=== PATIENT | male | born 1955 ===

== ENCOUNTER 2016-12-23 04:35 | Emergency (ER) | payer SELFPAY ==
[2016-12-23] MEDS ORDERED: PEPCID IV ONE ×2 (04:52→05:01)
--- NOTE | 2016-12-23 06:41 | Emergency Department Report ---
HPI - General Chief Complaint: Allergic Reaction Time Seen by Provider: 12/23/16 06:16 - HPI HPI: This is a 61-year-old -[place] male who presents to the emergency department from home with complaint of a possible allergic reaction. The patient had some apple cider vinegar and some Ramen noodles at about 3 AM. Shortly after this he began feeling his tongue become numb and swelling and he felt like he was having some tightness into the chest. He then took about 100 mg of Benadryl and drove himself in to be seen. He was also having a little bit of swelling around the eyes. He now says that it is starting to improve. He denies any drooling, swelling of the posterior pharynx, fever. He denies any past medical history. He is allergic to IV dye, penicillin and seafood. Otherwise he does not know anything else he might have eaten or done that would' ve caused this reaction. He does not currently have a primary care physician. ED Past Medical Hx - Past Medical History Previous Medical History?: No - Surgical History Past Surgical History?: Yes Additional Surgical History: neck - Social History Smoking Status: Never Smoker Substance Use Type: Alcohol - Medications Home Medications: Home Medications Medication Instructions Recorded Confirmed Last Taken Type Famotidine [Pepcid] 20 mg PO BID #6 tablet 12/23/16 Unknown Rx predniSONE [Deltasone] 20 mg PO BID #6 tab 12/23/16 Unknown Rx ED Review of Systems ROS: Stated complaint: ALLERGIC REACTION Other details as noted in HPI Comment: All other systems reviewed and negative Constitutional: denies: chills, fever Eyes: denies: eye pain, eye discharge, vision change ENT: other (tongue swelling and numbness). denies: ear pain, throat pain Respiratory: shortness of breath. denies: cough Cardiovascular: denies: chest pain, palpitations Gastrointestinal: denies: abdominal pain, nausea, diarrhea Genitourinary: denies: urgency, dysuria Musculoskeletal: denies: back pain, joint swelling, arthralgia Skin: denies: rash, lesions Neurological: denies: headache, weakness, paresthesias Physical Exam - Physical Exam Vital Signs: Vital Signs 12/23/16 04:43 Temperature 98 F Pulse Rate 85 Respiratory 18 Rate Blood Pressure 159/106 O2 Sat by Pulse 100 Oximetry Physical Exam: GENERAL: The patient is well-developed well-nourished. HEENT: Normocephalic. Atraumatic. Extraocular motions are intact. Patient has moist mucous membranes. Pupils equal reactive to light bilaterally. No nystagmus. Oropharynx is clear. Mallampati of 1. NECK: Supple. Trachea is midline. Full range of motion. CHEST/LUNGS: Clear to auscultation. There is no respiratory distress noted. HEART/CARDIOVASCULAR: Regular. There is no tachycardia. There is no gallop rub or murmur. ABDOMEN: Abdomen is soft, nontender. Patient has normal bowel sounds. There is no abdominal distention. SKIN: There is no rash. There is no edema. There is no diaphoresis. NEURO: The patient is awake, alert, and oriented. The patient is cooperative. The patient has no focal neurologic deficits. The patient has normal speech. MUSCULOSKELETAL: There is no tenderness or deformity. There is no limitation range of motion. There is no evidence of acute injury. ED Course Vital Signs 12/23/16 04:43 Temperature 98 F Pulse Rate 85 Respiratory 18 Rate Blood Pressure 159/106 O2 Sat by Pulse 100 Oximetry ED Medical Decision Making - Lab Data Result diagrams: 12/23/16 07:02 12/23/16 07:05 - Radiology Data Radiology results: image reviewed interpreted by me: X-ray of the neck does not show any foreign body or airway occlusion - Medical Decision Making 61-year-old male presents to the ER with the complaint of a possible allergic reaction with some numbness of the tongue, feelings of swelling of the tongue and some tightness to the throat or chest. There is been no drooling or trismus. Patient has not been in any respiratory distress. He took Benadryl prior to coming in was given Solu-Medrol and Pepcid. On physical examination the patient does not have any significant swelling and has a patent oropharynx with a Mallampati 1. Vital signs stable throughout his ED course including being afebrile. The patient was reevaluated multiple times over the 5 hours he was in the emergency department and he has shown improvement. He no longer feels as if he has any of the symptoms that brought him in for presentation. We will attempt outpatient follow-up. He will go home on prednisone and Pepcid and follow up with primary care. He will return to the emergency department immediately with any returning of his symptoms or any respiratory distress or any acute distress. - Differential Diagnosis allergic reaction, angioedema Critical Care Time: No Critical care attestation.: If time is entered above; I have spent that time in minutes in the direct care of this critically ill patient, excluding procedure time. ED Disposition Clinical Impression: Allergic reaction Qualifiers: Encounter type: initial encounter Qualified Code(s): T78.40XA - Allergy, unspecified, initial encounter Disposition: TO HOME OR SELFCARE Is pt being admited?: No Condition: Stable Instructions: Angioedema (ED), Urticaria (ED) Additional Instructions: Please follow-up with a primary care physician in the next few days if possible. Return to the emergency department immediately, or call 911, with any recurrence of any tongue swelling, throat swelling, shortness of breath, drooling, chest pain or any acute distress. Please try and stay away from the apple cider vinegar and the Ramen until we can find out what she will are allergic to. Prescriptions: Famotidine [Pepcid] 20 mg PO BID #6 tablet predniSONE [Deltasone] 20 mg PO BID #6 tab Referrals: PRIMARY CAREMD [Primary Care Provider] - 3-5 Days THERESA GAO MD [Staff Physician] - 3-5 Days AARON BERGERON MD [Staff Physician] - 3-5 Days [facility] [Outside] - 3-5 Days [facility] [Outside] - 3-5 Days Time of Disposition: 09:40
[2016-12-23 07:28] LABS: Basophils % (Auto) 0.3 % (0.0-1.8); Eosinophils % (Auto) 0.9 % (0.0-4.3); Hematocrit 43.7 % (35.5-45.6); Hemoglobin 14.4 gm/dl (11.8-15.2); Mean Corpuscular HGB Conc 33 % (32-34); Mean Corpuscular Hemoglobin 33 pg (28-32); Mean Corpuscular Volume 99 fl (84-94); Platelet Count 195 K/mm3 (140-440); Red Blood Count 4.41 M/mm3 (3.65-5.03); Red Cell Distribution Width 13.9 % (13.2-15.2)
[2016-12-23 07:31] LABS: Anion Gap 15 mmol/L; Blood Urea Nitrogen 20 mg/dL (9-20); Calcium 9.4 mg/dL (8.4-10.2); Carbon Dioxide 29 mmol/L (22-30); Chloride 100.6 mmol/L (98-107); Glucose 117 mg/dL (75-100); Potassium 5.3 mmol/L (3.6-5.0); Sodium 139 mmol/L (137-145)
[2016-12-23] MEDS ORDERED: KIONEX PO ONE (07:34)
--- NOTE | 2016-12-23 08:18 | XRay Report ---
X-RAY SOFT TISSUE NECK TWO VIEWS: 12/23/16 05:08:00 CLINICAL: Allergic reaction and throat swelling. FINDINGS: Normal airway and soft tissues. The epiglottis is normal size. No mass. No soft tissue air or mediastinal air. No foreign body. Status post anterior surgical fusion at C5-6 with anterior late and screws. Degenerative change in the cervical spine. IMPRESSION: Normal soft tissues and no compromise of the airway..
[2016-12-23 10:50] VITALS: BP 118/74
== END 2016-12-23 09:49 | disposition home or self-care (01) ==
LOC: ED 04:35
DX: T78.1XXA Other adverse food reactions, not elsewhere classified, initial encounter (principal); X58.XXXA Exposure to other specified factors, initial encounter
CPT/HCPCS: 36415; 70360; 80048; 84484; 85025; 96374; 96375; 99284; J2930

== ENCOUNTER 2021-10-28 01:29 | Emergency (ER) | payer MEDICARE ==
[2021-10-28] MEDS ORDERED: ALBUTEROL 2.5 MG/3 ML NEBU IH ONE ×2 (07:45→08:47)
[2021-10-28] MEDS ORDERED: IPRATROPIUM 0.02% NEBU 2.5 ML IH ONE ×2 (07:45→08:47)
--- NOTE | 2021-10-28 07:52 | Emergency Department Report ---
HPI - General Chief Complaint: Dyspnea/Respdistress Time Seen by Provider: 10/28/21 07:39 - HPI HPI: Room 17 The patient is a 66-year-old male present with a chief complaint of chest congestion. The patient states for the past 1.5 weeks that he has had chest congestion and a cough. Patient states his cough has been productive of white sputum and now appears slightly green. Patient denies history of fever. Patient states he has been vaccinated against COVID receiving 3 doses. Patient denies shortness of breath ED Past Medical Hx - Past Medical History Previous Medical History?: Yes Additional medical history: HYPERLIPIDEMIA - Surgical History Past Surgical History?: No Additional Surgical History: neck - Family History Family history: no significant - Social History Smoking Status: Never Smoker Substance Use Type: None (Denies illicit drug use), Alcohol (Occasional) - Medications Home Medications: Home Medications Medication Instructions Recorded Confirmed Last Taken Type Famotidine [Pepcid] 20 mg PO BID #6 tablet 12/23/16 Unknown Rx predniSONE [Deltasone] 20 mg PO BID #6 tab 12/23/16 Unknown Rx Albuterol Mdi (or & Nicu Only) 2 puff IH QID PRN #8.5 gram 10/28/21 Unknown Rx [ProAir HFA Inhaler] Azithromycin [Zithromax Z-LONNIE] 0 mg PO DAILY #6 tab 10/28/21 Unknown Rx guaiFENesin [Guaifenesin] 200 mg PO QID PRN #30 10/28/21 Unknown Rx ED Review of Systems ROS: Stated complaint: ARETHA/COUGH Other details as noted in HPI Constitutional: denies: fever Eyes: denies: eye pain ENT: denies: throat pain Respiratory: cough, wheezing. denies: shortness of breath Cardiovascular: denies: chest pain Endocrine: no symptoms reported Gastrointestinal: denies: abdominal pain Genitourinary: denies: dysuria Musculoskeletal: denies: back pain Neurological: denies: headache Physical Exam - Physical Exam Vital Signs: Vital Signs 10/28/21 01:34 Temperature 98.1 F Pulse Rate 58 L Respiratory 20 Rate Blood Pressure 122/70 [Right] O2 Sat by Pulse 97 Oximetry Physical Exam: GENERAL: The patient is well-developed well-nourished male lying on stretcher not appearing to be in acute distress. [] HEENT: Normocephalic. Atraumatic. Extraocular motions are intact. Patient has moist mucous membranes. NECK: Supple. Trachea midline CHEST/LUNGS: Faint expiratory wheezing. There is no respiratory distress noted. HEART/CARDIOVASCULAR: Regular. There is no tachycardia. There is no gallop rub or murmur. ABDOMEN: Abdomen is soft, nontender. Patient has normal bowel sounds. There is no abdominal distention. SKIN: There is no rash. There is no edema. There is no diaphoresis. NEURO: The patient is awake, alert, and oriented. The patient is cooperative. The patient has no focal neurologic deficits. The patient has normal speech. GCS 15 MUSCULOSKELETAL: There is no evidence of acute injury. ED Course Vital Signs 10/28/21 01:34 Temperature 98.1 F Pulse Rate 58 L Respiratory 20 Rate Blood Pressure 122/70 [Right] O2 Sat by Pulse 97 Oximetry - Reevaluation(s) Reevaluation #1: 10/28/21 08:47 Patient still has some expiratory wheezing. Will repeat nebs Reevaluation #2: 10/28/21 10:10 Patient improved. Lungs clear to auscultation bilaterally. ED Medical Decision Making - Lab Data Result diagrams: 10/28/21 07:54 10/28/21 07:54 - Radiology Data Radiology results: report reviewed (Chest x-ray), image reviewed (Chest x-ray) interpreted by me: Chest x-ray-no definite focal infiltrates, no pneumothorax [facility] [address] [place] [address] XRay Report Signed Patient: AARON BERUMEN MR#: [id number] : 1955 Acct:[id number] Age/Sex: 66 / M ADM Date: 10/28/21 Loc: ED Attending Dr: Ordering Physician: ROBERT FLYNN MD Date of Service: 10/28/21 Procedure(s): XR chest 1V ap Accession Number(s): [id number] cc: ROBERT FLYNN MD Fluoro Time In Minutes: CHEST 1 VIEW 10/28/2021 7:53 AM INDICATION / CLINICAL INFORMATION: Cough, congestion. COMPARISON: None available. FINDINGS: SUPPORT DEVICES: None. HEART / MEDIASTINUM: No significant abnormality. LUNGS / PLEURA: No significant pulmonary or pleural abnormality. No pneumothorax. ADDITIONAL FINDINGS: No significant additional findings. IMPRESSION: No acute abnormality. Signer Name: Finesse Grajeda MD Signed: 10/28/2021 8:18 AM Workstation Name: [id number] Transcribed By: ES Dictated By: Finesse Grajeda MD Electronically Authenticated By: Finesse Grajeda MD Signed Date/Time: 10/28/21817 DD/ 6 TD/TT: - Differential Diagnosis Bronchitis, pneumonia Critical care attestation.: If time is entered above; I have spent that time in minutes in the direct care of this critically ill patient, excluding procedure time. ED Disposition Clinical Impression: Acute bronchitis Disposition: HOME / SELF CARE / HOMELESS Is pt being admited?: No Does the pt Need Aspirin: No Condition: Stable Instructions: Acute Bronchitis, Adult, [id number], Acute Bronchitis (ED) Additional Instructions: Return to the emergency department should you develop worsening symptoms, inability to tolerate food or liquids, high fever or any other concerns Prescriptions: guaiFENesin [Guaifenesin] 200 mg PO QID PRN #30 PRN Reason: Cough Albuterol Mdi (or & Nicu Only) [ProAir HFA Inhaler] 2 puff IH QID PRN #8.5 gram PRN Reason: Shortness Of Breath Azithromycin [Zithromax Z-LONNIE] 0 mg PO DAILY #6 tab Referrals: PRIMARY CARE, [Primary Care Provider] - 3-5 Days Time of Disposition: 10:11
[2021-10-28 08:15] LABS: Hematocrit 42.8 % (35.5-45.6); Mean Corpuscular HGB Conc 33 % (32-34); Mean Corpuscular Volume 98 fl (84-94); Platelet Count 282 K/mm3 (140-440); Red Blood Count 4.35 M/mm3 (3.65-5.03); Red Cell Distribution Width 13.6 % (13.2-15.2)
--- NOTE | 2021-10-28 08:22 | XRay Report ---
CHEST 1 VIEW 10/28/2021 7:53 AM INDICATION / CLINICAL INFORMATION: Cough, congestion. COMPARISON: None available. FINDINGS: SUPPORT DEVICES: None. HEART / MEDIASTINUM: No significant abnormality. LUNGS / PLEURA: No significant pulmonary or pleural abnormality. No pneumothorax. ADDITIONAL FINDINGS: No significant additional findings. IMPRESSION: No acute abnormality. Signer Name: Finesse Grajeda MD Signed: 10/28/2021 8:18 AM Workstation Name: [id number]
[2021-10-28 08:23] LABS: BUN/Creatinine Ratio 18; Blood Urea Nitrogen 14 mg/dL (9-20); Calcium 9.6 mg/dL (8.4-10.2); Hemolysis Index 6
[2021-10-28 10:12] VITALS: BP 121/77
[2021-10-28 10:33] LABS: Band Neutrophils # (Manual) 0.2 K/mm3; Platelet Estimate Consistent w Auto; RBC Morphology Normal; Total Cells Counted 100
== END 2021-10-28 10:49 | disposition home or self-care (01) ==
LOC: ED 01:29
DX: J20.9 Acute bronchitis, unspecified (principal); Z72.89 Other problems related to lifestyle; Z91.041 Radiographic dye allergy status; Z88.0 Allergy status to penicillin; Z91.013 Allergy to seafood; Z79.899 Other long term (current) drug therapy
CPT/HCPCS: 36415; 71045; 80048; 85007; 85025; 94640; 94644; 99284

== ENCOUNTER 2021-11-01 14:49 | Inpatient (IN) | payer MEDICARE ==
--- NOTE | 2021-11-01 15:39 | XRay Report ---
XR chest routine 2V INDICATION / CLINICAL INFORMATION: PNA. COMPARISON: 10/28/2021 FINDINGS: SUPPORT DEVICES: None. HEART /PULMONARY VASCULATURE: No significant abnormality. LUNGS / PLEURA: No acute pulmonary or pleural abnormality. No pneumothorax. ADDITIONAL FINDINGS: No significant additional findings. IMPRESSION: 1. No acute findings. Signer Name: Albaro Coello MD Signed: 11/01/2021 3:35 PM Workstation Name: [id number]
[2021-11-01] MEDS ORDERED: ALBUTEROL 2.5 MG/3 ML NEBU IH ONE ×2 (15:58→20:04)
[2021-11-01] MEDS ORDERED: IPRATROPIUM 0.02% NEBU 2.5 ML IH ONE (15:58)
[2021-11-01] MEDS ORDERED: methylPREDNISolone Sod Succinate 125 MG/2 ML INJ IV ONE (15:58)
[2021-11-01] MEDS ORDERED: MAGNESIUM SULFATE 2 GM/50 ML BAG IV ONE (15:58)
[2021-11-01] MEDS ORDERED: ONDANSETRON 4 MG/2 ML INJ IV ONE (16:07)
[2021-11-01] MEDS ORDERED: ONDANSETRON 4 MG/2 ML INJ ONE (16:07)
[2021-11-01 16:08] LABS: Hematocrit 40.6 % (35.5-45.6); Hemoglobin 13.4 gm/dl (11.8-15.2); Mean Corpuscular HGB Conc 33 % (32-34); Mean Corpuscular Volume 98 fl (84-94); Platelet Count 281 K/mm3 (140-440); Red Blood Count 4.13 M/mm3 (3.65-5.03); Red Cell Distribution Width 13.2 % (13.2-15.2)
--- NOTE | 2021-11-01 16:14 | Emergency Department Report ---
ED Shortness of Breath HPI - General Chief Complaint: Dyspnea/Respdistress Stated Complaint: BREATHING Time Seen by Provider: 11/01/21 15:49 Source: patient, old records reviewed Mode of arrival: Ambulatory Limitations: No Limitations - History of Present Illness Initial Comments: 66-year male with a past medical history hyperlipidemia presents to the hospital with complaints of wheezing and shortness of breath for several days. Patient was seen here October 28 with similar symptoms and was diagnosed with acute bronchitis. Chest x-ray negative at that time. He was prescribed albuterol, azithromycin, and guaifenesin. Patient has been taking medications without improvement. Continues to have persistent wheezing and shortness of breath was worsening today. Cough is productive with occasional green sputum. Patient complains of chest tightness related to wheezing rated 3/10 in intensity worse with exertion. Patient denies smoking history, history of COPD, or asthma - Related Data Previous Rx's Medication Instructions Recorded Last Taken Type Famotidine [Pepcid] 20 mg PO BID #6 tablet 12/23/16 Unknown Rx predniSONE [Deltasone] 20 mg PO BID #6 tab 12/23/16 Unknown Rx Albuterol Mdi (or & Nicu Only) 2 puff IH QID PRN #8.5 gram 10/28/21 Unknown Rx [ProAir HFA Inhaler] Azithromycin [Zithromax Z-LONNIE] 0 mg PO DAILY #6 tab 10/28/21 Unknown Rx guaiFENesin [Guaifenesin] 200 mg PO QID PRN #30 10/28/21 Unknown Rx Allergies Allergy/AdvReac Type Severity Reaction Status Date / Time Iodinated Contrast Media Allergy Unknown Verified 12/23/16 04:50 Penicillins Allergy Unknown Verified 12/23/16 04:48 seafood Allergy Unknown Uncoded 12/23/16 04:48 ED Review of Systems ROS: Stated complaint: BREATHING Other details as noted in HPI Comment: All other systems reviewed and negative ED Past Medical Hx - Past Medical History Previous Medical History?: Yes Additional medical history: HYPERLIPIDEMIA, SOB, PNEMONIA - Surgical History Past Surgical History?: Yes Additional Surgical History: neck - Social History Smoking Status: Never Smoker Substance Use Type: None (Denies illicit drug use), Alcohol (Occasional) - Medications Home Medications: Home Medications Medication Instructions Recorded Confirmed Last Taken Type Famotidine [Pepcid] 20 mg PO BID #6 tablet 12/23/16 Unknown Rx predniSONE [Deltasone] 20 mg PO BID #6 tab 12/23/16 Unknown Rx Albuterol Mdi (or & Nicu Only) 2 puff IH QID PRN #8.5 gram 10/28/21 Unknown Rx [ProAir HFA Inhaler] Azithromycin [Zithromax Z-LONNIE] 0 mg PO DAILY #6 tab 10/28/21 Unknown Rx guaiFENesin [Guaifenesin] 200 mg PO QID PRN #30 10/28/21 Unknown Rx ED Physical Exam - General Limitations: No Limitations - Other Other exam information: General: Mild respiratory distress Head: Atraumatic Eyes: normal appearance ENT: Moist mucous membranes Neck: Normal appearance, no midline tenderness Chest: Tachypnea, frequent dry cough, wheezing, fair air movement CV: Regular rate and rhythm Abdomen: Soft, normal bowel sounds, nontender, nondistended, no rebound or guarding Back: Normal inspection Extremity: Normal inspection, full range of motion, no calf tenderness or leg edema Neuro: Alert O x 3, no facial asymmetry, speech clear, no gross motor sensory deficit Psych: Appropriate behavior Skin: No rash ED Course Vital Signs 11/01/21 11/01/21 11/01/21 15:12 15:37 15:45 Temperature 98.5 F Pulse Rate 86 82 Pulse Rate [ Anterior Bilateral Throughout] Respiratory 20 29 H Rate Respiratory Rate [Anterior Bilateral Throughout] Blood Pressure 154/92 Blood Pressure 130/84 [Right] O2 Sat by Pulse 92 96 95 Oximetry 11/01/21 11/01/21 11/01/21 15:50 16:01 16:15 Temperature Pulse Rate 85 81 Pulse Rate [ Anterior Bilateral Throughout] Respiratory 22 18 18 Rate Respiratory Rate [Anterior Bilateral Throughout] Blood Pressure 139/89 139/89 Blood Pressure [Right] O2 Sat by Pulse 97 98 93 Oximetry 11/01/21 11/01/21 11/01/21 16:31 16:45 17:01 Temperature Pulse Rate 73 54 L 58 L Pulse Rate [ Anterior Bilateral Throughout] Respiratory 21 18 19 Rate Respiratory Rate [Anterior Bilateral Throughout] Blood Pressure 117/77 117/77 114/68 Blood Pressure [Right] O2 Sat by Pulse 98 93 96 Oximetry 11/01/21 11/01/21 11/01/21 17:05 17:15 17:31 Temperature Pulse Rate 54 L 55 L Pulse Rate [ 87 Anterior Bilateral Throughout] Respiratory 17 17 Rate Respiratory 19 Rate [Anterior Bilateral Throughout] Blood Pressure 114/68 119/69 Blood Pressure [Right] O2 Sat by Pulse 94 94 Oximetry 11/01/21 11/01/21 11/01/21 17:45 18:01 18:15 Temperature Pulse Rate 55 L 51 L 62 Pulse Rate [ Anterior Bilateral Throughout] Respiratory 16 16 22 Rate Respiratory Rate [Anterior Bilateral Throughout] Blood Pressure 119/69 122/65 122/65 Blood Pressure [Right] O2 Sat by Pulse 94 94 94 Oximetry 11/01/21 11/01/21 11/01/21 18:31 18:45 19:01 Temperature Pulse Rate 54 L 78 62 Pulse Rate [ Anterior Bilateral Throughout] Respiratory 17 17 9 L Rate Respiratory Rate [Anterior Bilateral Throughout] Blood Pressure 121/67 121/67 115/69 Blood Pressure [Right] O2 Sat by Pulse 93 95 99 Oximetry 11/01/21 20:13 Temperature Pulse Rate Pulse Rate [ 84 Anterior Bilateral Throughout] Respiratory Rate Respiratory 21 Rate [Anterior Bilateral Throughout] Blood Pressure Blood Pressure [Right] O2 Sat by Pulse Oximetry - Reevaluation(s) Reevaluation #1: 11/01/21 20:05 Patient has a room sat of 90 to 90%. Patient has completed 1 hour continuous DuoNeb's and continues to have persistent wheezing. Additional nebs ordered. Plan to admit patient to the hospital service at shift change ED Medical Decision Making - Lab Data Result diagrams: 11/01/21 15:38 11/01/21 15:38 Lab Results 11/01/21 11/01/21 Range/Units 15:38 15:38 WBC 5.4 (4.5-11.0) K/mm3 RBC 4.13 (3.65-5.03) M/mm3 Hgb 13.4 (11.8-15.2) gm/dl Hct 40.6 (35.5-45.6) % MCV 98 H (84-94) fl MCH 33 H (28-32) pg MCHC 33 (32-34) % RDW 13.2 (13.2-15.2) % Plt Count 281 (140-440) K/mm3 Eos % (Auto) Fulfillment Representative Add Manual Diff Complete Total Counted 100 Seg Neuts % (Manual) 43.0 (40.0-70.0) % Band Neutrophils % 0 % Lymphocytes % (Manual) 30.0 (13.4-35.0) % Reactive Lymphs % (Man) 0 % Monocytes % (Manual) 15.0 H (0.0-7.3) % Eosinophils % (Manual) 11.0 H (0.0-4.3) % Basophils % (Manual) 1.0 (0.0-1.8) % Metamyelocytes % 0 % Myelocytes % 0 % Promyelocytes % 0 % Blast Cells % 0 % Nucleated RBC % Not Reportable Seg Neutrophils # Man 2.3 (1.8-7.7) K/mm3 Band Neutrophils # 0.0 K/mm3 Lymphocytes # (Manual) 1.6 (1.2-5.4) K/mm3 Abs React Lymphs (Man) 0.0 K/mm3 Monocytes # (Manual) 0.8 (0.0-0.8) K/mm3 Eosinophils # (Manual) 0.6 H (0.0-0.4) K/mm3 Basophils # (Manual) 0.1 (0.0-0.1) K/mm3 Metamyelocytes # 0.0 K/mm3 Myelocytes # 0.0 K/mm3 Promyelocytes # 0.0 K/mm3 Blast Cells # 0.0 K/mm3 WBC Morphology Not Reportable Hypersegmented Neuts Not Reportable Hyposegmented Neuts Not Reportable Hypogranular Neuts Not Reportable Smudge Cells Not Reportable Toxic Granulation Not Reportable Toxic Vacuolation Not Reportable Dohle Bodies Not Reportable Pelger-Huet Anomaly Not Reportable Baljit Rods Not Reportable Platelet Estimate Consistent w auto Clumped Platelets Not Reportable Plt Clumps, EDTA Not Reportable Large Platelets Not Reportable Giant Platelets Not Reportable Platelet Satelliting Not Reportable Plt Morphology Comment Not Reportable RBC Morphology Normal Dimorphic RBCs Not Reportable Polychromasia Not Reportable Hypochromasia Not Reportable Poikilocytosis Not Reportable Anisocytosis Not Reportable Microcytosis Not Reportable Macrocytosis Not Reportable Spherocytes Not Reportable Pappenheimer Bodies Not Reportable Sickle Cells Not Reportable Target Cells Not Reportable Tear Drop Cells Not Reportable Ovalocytes Not Reportable Helmet Cells Not Reportable [place] Bodies Not Reportable [place] Rings Not Reportable [place] Cells Not Reportable Bite Cells Not Reportable Crenated Cell Not Reportable Elliptocytes Not Reportable Acanthocytes (Spur) Not Reportable Rouleaux Not Reportable Hemoglobin C Crystals Not Reportable Schistocytes Not Reportable Malaria parasites Not Reportable Chu Bodies Not Reportable Hem Pathologist Commnt No Sodium 138 (137-145) mmol/L Potassium 4.0 (3.6-5.0) mmol/L Chloride 103.7 (98-107) mmol/L Carbon Dioxide 21 L D (22-30) mmol/L Anion Gap 17 mmol/L BUN 11 (9-20) mg/dL Creatinine 0.9 (0.8-1.3) mg/dL Estimated GFR > 60 ml/min BUN/Creatinine Ratio 12 % Glucose 103 H (75-100) mg/dL Calcium 9.3 (8.4-10.2) mg/dL Total Bilirubin 0.60 (0.1-1.2) mg/dL AST 22 (5-40) units/L ALT 20 (7-56) units/L Alkaline Phosphatase 66 (35-129) units/L Total Protein 7.2 (6.3-8.2) g/dL Albumin 4.4 (3.9-5) g/dL Albumin/Globulin Ratio 1.6 % - Radiology Data Radiology results: report reviewed (Chest x-ray: No acute findings as per radiology) - Medical Decision Making 66-year-old male with a recent diagnosis of acute bronchitis presents to the hospital complaining of persistent and worsening wheezing and shortness of breath despite home MDI use. Patient significantly dyspneic with mild res piratory distress upon arrival. Treated with Solu-Medrol, magnesium, 1 hour continuous duo nebs with mild improvement in symptoms. Respiratory distress has improved however patient continues to have frequent wheezing and cough. Room air saturation 90 to 93%. No signs of pneumonia on x-ray. Patient will be admitted to the hospitalist service for further treatment Critical Care Time: Yes Critical care time in (mins) excluding proc time.: 35 Critical care attestation.: If time is entered above; I have spent that time in minutes in the direct care of this critically ill patient, excluding procedure time. Critical Care Time: 35 Minutes of critical care time excluding procedures were used in the care of the patient. I came immediately to the bedside upon patient's arrival. I discussed treatment plan with the nursing team members. I reviewed electronic record. Patient required multiple interventions and reassessments including multiple continuous neb treatments. Spoke with hospitalist and consultants in order to expedite care. ED Disposition Clinical Impression: Acute bronchitis with wheezing Disposition: ADMITTED INPATIENT Is pt being admited?: Yes Does the pt Need Aspirin: No Condition: Stable Instructions: Acute Bronchitis (ED) Time of Disposition: 21:29 (Dr hung/hosptialist)
[2021-11-01 16:16] LABS: Alanine Aminotransferase 20 units/L (7-56); Albumin 4.4 g/dL (3.9-5); BUN/Creatinine Ratio 12; Blood Urea Nitrogen 11 mg/dL (9-20); Calcium 9.3 mg/dL (8.4-10.2); Hemolysis Index 4
[2021-11-01 17:10] LABS: Platelet Estimate Consistent w Auto; RBC Morphology Normal; Total Cells Counted 100
[2021-11-01] MEDS ORDERED: ONDANSETRON 4 MG/2 ML INJ IV PRN (21:40)
[2021-11-01] MEDS ORDERED: ALBUTEROL 2.5 MG/3 ML NEBU IH PRN (21:40)
[2021-11-01] MEDS ORDERED: MORPHINE 2 MG/1 ML INJ IV PRN (21:40)
[2021-11-01] MEDS ORDERED: HYDROmorphone 1 MG/1 ML INJ IV PRN (21:40)
[2021-11-01] MEDS ORDERED: ACETAMINOPHEN 325 MG TAB PO PRN (21:40)
--- NOTE | 2021-11-01 21:47 | History and Physical Report ---
History of Present Illness Date of examination: 11/01/21 Date of admission: 11/01/21 Chief complaint: Dyspnea Respiratory distress History of present illness: 66-year male with history of hyperlipidemia and pneumonia was brought to the emergency room because of wheezing and shortness of breath for several days. Patient was seen here October 28 with similar symptoms and was diagnosed with acute bronchitis. Chest x-ray negative at that time. He was prescribed albu terol, azithromycin, and guaifenesin. Patient has been taking medications without improvement. Continues to have persistent wheezing and shortness of breath was worsening today. Cough is productive with occasional green sputum. Patient complains of chest tightness related to wheezing rated 3/10 in intensity worse with exertion. Patient denies smoking history, history of COPD, or asthma In the emergency room patient is found to have continuous respiratory distress wheezing so going to admit the patient we will put the patient on neb treatment and steroid and IV antibiotic Past History Past Medical History: hyperlipidemia, other (Pneumonia, shortness of breath) Past Surgical History: No surgical history Social history: no significant social history Family history: other (Hyperlipidemia) Medications and Allergies Allergies Allergy/AdvReac Type Severity Reaction Status Date / Time Iodinated Contrast Media Allergy Unknown Verified 12/23/16 04:50 Penicillins Allergy Unknown Verified 12/23/16 04:48 seafood Allergy Unknown Uncoded 12/23/16 04:48 Home Medications Medication Instructions Recorded Confirmed Last Taken Type Famotidine [Pepcid] 20 mg PO BID #6 tablet 12/23/16 Unknown Rx predniSONE [Deltasone] 20 mg PO BID #6 tab 12/23/16 Unknown Rx Albuterol Mdi (or & Nicu Only) 2 puff IH QID PRN #8.5 gram 10/28/21 Unknown Rx [ProAir HFA Inhaler] Azithromycin [Zithromax Z-LONNIE] 0 mg PO DAILY #6 tab 10/28/21 Unknown Rx guaiFENesin [Guaifenesin] 200 mg PO QID PRN #30 10/28/21 Unknown Rx Active Meds: Active Medications Acetaminophen (Acetaminophen 325 Mg Tab) 650 mg PO Q4H PRN PRN Reason: Pain MILD(1-3)/Fever >100.5/AQUINO Albuterol (Albuterol 2.5 Mg/3 Ml Nebu) 2.5 mg IH Q3HRT PRN PRN Reason: Shortness Of Breath Albuterol/Ipratropium (Ipratropium/Albuterol Sulfate 3 Ml Ampul.Neb) 1 ampul IH Q6HRT KAVIN Famotidine (Famotidine 20 Mg Tab) 20 mg PO BID KAVIN Heparin Sodium (Porcine) (Heparin 5,000 Unit/1 Ml Vial) 5,000 unit SUB-Q Q12HR KAVIN Hydromorphone HCl (Hydromorphone 1 Mg/1 Ml Inj) 0.5 mg IV Q3H PRN PRN Reason: Pain , Severe (7-10) Levofloxacin/Dextrose (Levaquin 750mg/150ml) 750 mg in 150 mls @ 100 mls/hr IV Q24H KAVIN; Protocol Methylprednisolone Sodium Succinate (Methylprednisolone Sod Succinate 40 Mg/1 Ml Inj) 40 mg IV Q8HR KAVIN Montelukast Sodium (Montelukast 10 Mg Tab) 10 mg PO QHS KAVIN Morphine Sulfate (Morphine 2 Mg/1 Ml Inj) 2 mg IV Q4H PRN PRN Reason: Pain, Moderate (4-6) Ondansetron HCl (Ondansetron 4 Mg/2 Ml Inj) 4 mg IV Q8H PRN PRN Reason: Nausea And Vomiting Sodium Chloride (Sodium Chloride 0.9% 10 Ml Flush Syringe) 10 ml IV BID KAVIN Sodium Chloride (Sodium Chloride 0.9% 10 Ml Flush Syringe) 10 ml IV PRN PRN PRN Reason: LINE FLUSH Review of Systems All systems: negative Cardiovascular: shortness of breath, dyspnea on exertion Respiratory: cough with sputum, shortness of breath, dyspnea on exertion, wheezing Exam - Constitutional Vitals: Temp Pulse Resp BP Pulse Ox 98.5 F 84 21 115/69 99 11/01/21 15:12 11/01/21 20:13 11/01/21 20:13 11/01/21 19:01 11/01/21 19:01 General appearance: Present: no acute distress, well-nourished - EENT Eyes: Present: PERRL ENT: hearing intact, clear oral mucosa - Neck Neck: Present: supple, normal ROM - Respiratory Respiratory effort: normal Respiratory: bilateral: wheezing - Cardiovascular Heart Sounds: Present: S1 & S2. Absent: rub, click - Extremities Extremities: pulses symmetrical, No edema Peripheral Pulses: within normal limits - Abdominal General gastrointestinal: Present: soft, non-tender, non-distended, normal bowel sounds Male genitourinary: Present: normal - Integumentary Integumentary: Present: clear, warm, dry - Musculoskeletal Musculoskeletal: gait normal, strength equal bilaterally - Psychiatric Psychiatric: appropriate mood/affect, intact judgment & insight - Neurologic Neurologic: CNII-XII intact, moves all extremities Results - Labs CBC & Chem 7: 11/01/21 15:38 11/01/21 15:38 Labs: Laboratory Last Values WBC 5.4 K/mm3 (4.5-11.0) 11/01/21 15:38 RBC 4.13 M/mm3 (3.65-5.03) 11/01/21 15:38 Hgb 13.4 gm/dl (11.8-15.2) 11/01/21 15:38 Hct 40.6 % (35.5-45.6) 11/01/21 15:38 MCV 98 fl (84-94) H 11/01/21 15:38 MCH 33 pg (28-32) H 11/01/21 15:38 MCHC 33 % (32-34) 11/01/21 15:38 RDW 13.2 % (13.2-15.2) 11/01/21 15:38 Plt Count 281 K/mm3 (140-440) 11/01/21 15:38 Eos % (Auto) Front Line Supervisor 11/01/21 15:38 Add Manual Diff Complete 11/01/21 15:38 Total Counted 100 11/01/21 15:38 Seg Neuts % (Manual) 43.0 % (40.0-70.0) 11/01/21 15:38 Band Neutrophils % 0 % 11/01/21 15:38 Lymphocytes % (Manual) 30.0 % (13.4-35.0) 11/01/21 15:38 Reactive Lymphs % (Man) 0 % 11/01/21 15:38 Monocytes % (Manual) 15.0 % (0.0-7.3) H 11/01/21 15:38 Eosinophils % (Manual) 11.0 % (0.0-4.3) H 11/01/21 15:38 Basophils % (Manual) 1.0 % (0.0-1.8) 11/01/21 15:38 Metamyelocytes % 0 % 11/01/21 15:38 Myelocytes % 0 % 11/01/21 15:38 Promyelocytes % 0 % 11/01/21 15:38 Blast Cells % 0 % 11/01/21 15:38 Nucleated RBC % Not Reportable 11/01/21 15:38 Seg Neutrophils # Man 2.3 K/mm3 (1.8-7.7) 11/01/21 15:38 Band Neutrophils # 0.0 K/mm3 11/01/21 15:38 Lymphocytes # (Manual) 1.6 K/mm3 (1.2-5.4) 11/01/21 15:38 Abs React Lymphs (Man) 0.0 K/mm3 11/01/21 15:38 Monocytes # (Manual) 0.8 K/mm3 (0.0-0.8) 11/01/21 15:38 Eosinophils # (Manual) 0.6 K/mm3 (0.0-0.4) H 11/01/21 15:38 Basophils # (Manual) 0.1 K/mm3 (0.0-0.1) 11/01/21 15:38 Metamyelocytes # 0.0 K/mm3 11/01/21 15:38 Myelocytes # 0.0 K/mm3 11/01/21 15:38 Promyelocytes # 0.0 K/mm3 11/01/21 15:38 Blast Cells # 0.0 K/mm3 11/01/21 15:38 WBC Morphology Not Reportable 11/01/21 15:38 Hypersegmented Neuts Not Reportable 11/01/21 15:38 Hyposegmented Neuts Not Reportable 11/01/21 15:38 Hypogranular Neuts Not Reportable 11/01/21 15:38 Smudge Cells Not Reportable 11/01/21 15:38 Toxic Granulation Not Reportable 11/01/21 15:38 Toxic Vacuolation Not Reportable 11/01/21 15:38 Dohle Bodies Not Reportable 11/01/21 15:38 Pelger-Huet Anomaly Not Reportable 11/01/21 15:38 Baljit Rods Not Reportable 11/01/21 15:38 Platelet Estimate Consistent w auto 11/01/21 15:38 Clumped Platelets Not Reportable 11/01/21 15:38 Plt Clumps, EDTA Not Reportable 11/01/21 15:38 Large Platelets Not Reportable 11/01/21 15:38 Giant Platelets Not Reportable 11/01/21 15:38 Platelet Satelliting Not Reportable 11/01/21 15:38 Plt Morphology Comment Not Reportable 11/01/21 15:38 RBC Morphology Normal 11/01/21 15:38 Dimorphic RBCs Not Reportable 11/01/21 15:38 Polychromasia Not Reportable 11/01/21 15:38 Hypochromasia Not Reportable 11/01/21 15:38 Poikilocytosis Not Reportable 11/01/21 15:38 Anisocytosis Not Reportable 11/01/21 15:38 Microcytosis Not Reportable 11/01/21 15:38 Macrocytosis Not Reportable 11/01/21 15:38 Spherocytes Not Reportable 11/01/21 15:38 Pappenheimer Bodies Not Reportable 11/01/21 15:38 Sickle Cells Not Reportable 11/01/21 15:38 Target Cells Not Reportable 11/01/21 15:38 Tear Drop Cells Not Reportable 11/01/21 15:38 Ovalocytes Not Reportable 11/01/21 15:38 Helmet Cells Not Reportable 11/01/21 15:38 Marie-[place] Bodies Not Reportable 11/01/21 15:38 [place] Rings Not Reportable 11/01/21 15:38 [place] Cells Not Reportable 11/01/21 15:38 Bite Cells Not Reportable 11/01/21 15:38 Crenated Cell Not Reportable 11/01/21 15:38 Elliptocytes Not Reportable 11/01/21 15:38 Acanthocytes (Spur) Not Reportable 11/01/21 15:38 Rouleaux Not Reportable 11/01/21 15:38 Hemoglobin C Crystals Not Reportable 11/01/21 15:38 Schistocytes Not Reportable 11/01/21 15:38 Malaria parasites Not Reportable 11/01/21 15:38 Chu Bodies Not Reportable 11/01/21 15:38 Hem Pathologist Commnt No 11/01/21 15:38 Sodium 138 mmol/L (137-145) 11/01/21 15:38 Potassium 4.0 mmol/L (3.6-5.0) 11/01/21 15:38 Chloride 103.7 mmol/L (98-107) 11/01/21 15:38 Carbon Dioxide 21 mmol/L (22-30) L D 11/01/21 15:38 Anion Gap 17 mmol/L 11/01/21 15:38 BUN 11 mg/dL (9-20) 11/01/21 15:38 Creatinine 0.9 mg/dL (0.8-1.3) 11/01/21 15:38 Estimated GFR > 60 ml/min 11/01/21 15:38 BUN/Creatinine Ratio 12 % 11/01/21 15:38 Glucose 103 mg/dL (75-100) H 11/01/21 15:38 Calcium 9.3 mg/dL (8.4-10.2) 11/01/21 15:38 Total Bilirubin 0.60 mg/dL (0.1-1.2) 11/01/21 15:38 AST 22 units/L (5-40) 11/01/21 15:38 ALT 20 units/L (7-56) 11/01/21 15:38 Alkaline Phosphatase 66 units/L (35-129) 11/01/21 15:38 Total Protein 7.2 g/dL (6.3-8.2) 11/01/21 15:38 Albumin 4.4 g/dL (3.9-5) 11/01/21 15:38 Albumin/Globulin Ratio 1.6 % 11/01/21 15:38 - Imaging and Cardiology Chest x-ray: report reviewed Assessment and Plan VTE prophylaxis?: Chemical Plan of care discussed with patient/family: Yes - Patient Problems (1) Acute bronchitis with wheezing Current Visit: Yes Status: Acute Plan to address problem: Admit the patient to the medical floor. Oxygen to have nasal cannula 3 L/min. DuoNeb by nebulizer every 4 hours. Albuterol via nebulizer every 4 hours as needed. Solu-Medrol 40 mg IV every 8 hours. Singular 10 mg p.o. daily. Levaquin 750 mg IV daily. We did send the blood in his sputum culture (2) Reactive airway disease with wheezing Current Visit: Yes Status: Acute Plan to address problem: Oxygen to have nasal cannula 3 L/min. DuoNeb by nebulizer every 4 hours. Albuterol via nebulizer every 4 hours as needed. Solu-Medrol 40 mg IV every 8 hours. Singular 10 mg p.o. daily. Levaquin 750 mg IV daily. We did send the blood in his sputum culture (3) Hyperlipidemia Current Visit: Yes Status: Acute Plan to address problem: Stable. We will continue the home medication. (4) DVT prophylaxis Current Visit: Yes Status: Acute Plan to address problem: Heparin 5000 units subcu every 12 hours for DVT prophylaxis. Pepcid 20 mg p.o. twice daily for GI prophylaxis. Patient is a full code
[2021-11-01] MEDS: MONTELUKAST 10 MG TAB PO SCH (22:55)
[2021-11-02] MEDS: IPRATROPIUM/ALBUTEROL SULFATE 3 ML AMPUL.NEB IH SCH ×4 (02:00→20:06)
[2021-11-02 05:23] LABS: Basophils % (Auto) 0.2 % (0.0-1.8); Eosinophils % (Auto) 0.1 % (0.0-4.3); Hematocrit 42.5 % (35.5-45.6); Hemoglobin 13.7 gm/dl (11.8-15.2); Lymphocytes # (Auto) 0.6 K/mm3 (1.2-5.4); Lymphocytes % (Auto) 11.8 % (13.4-35.0); Mean Corpuscular HGB Conc 32 % (32-34); Mean Corpuscular Volume 99 fl (84-94); Monocytes % (Auto) 0.8 % (0.0-7.3); Platelet Count 277 K/mm3 (140-440); Red Blood Count 4.28 M/mm3 (3.65-5.03); Red Cell Distribution Width 13.5 % (13.2-15.2)
[2021-11-02 05:44] LABS: BUN/Creatinine Ratio 12; Blood Urea Nitrogen 11 mg/dL (9-20); Calcium 9.6 mg/dL (8.4-10.2); Hemolysis Index 4
[2021-11-02] MEDS: methylPREDNISolone Sod Succinate 40 MG/1 ML INJ IV SCH ×4 (06:46→21:31)
--- NOTE | 2021-11-02 08:40 | Progress Note ---
Assessment and Plan Assessment and plan: History of present illness: 66-year male with history of hyperlipidemia and pneumonia was brought to the emergency room because of wheezing and shortness of breath for several days. Patient was seen here October 28 with similar symptoms and was diagnosed with acute bronchitis. Chest x-ray negative at that time. He was prescribed albuterol, azithromycin, and guaifenesin. Patient has been taking medications without improvement. Continues to have persistent wheezing and shortness of breath was worsening today. Cough is productive with occasional green sputum. Patient complains of chest tightness related to wheezing rated 3/10 in intensity worse with exertion. Patient denies smoking history, history of COPD, or asthma In the emergency room patient is found to have continuous respiratory distress wheezing so going to admit the patient we will put the patient on neb treatment and steroid and IV antibiotic Hospital course 11/02: Complains of cough this AM. Added claritin - D. Will continue nebs/steroids/abx for treatment. 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 previously healthy, plays tennis daily. no smoking hx. -on supplemental 2L O2 saturating 97%. - CXR no acute findings. -encourage pulmonary toileting, incentive spirometer -med management with albuterol/ipratropium nebs, budesonide nebs, solumedrol, levaquin, monteluekast. #Reactive airway disease with wheezing #Hyperlipidemia - does not take medications for this. #Advance care planning Disease education conducted, care plan discussed, diagnoses discussed, prognosis discussed, patient is full code, patient acknowledges understanding and agree with care plan, +30 minutes. History Interval history: Resting comfortably. only complaint is cough this AM. Hospitalist Physical - Physical exam Narrative exam: Physical Exam: VITAL SIGNS: Reviewed. GENERAL: The patient appears normally developed, Vital signs as documented. HEAD: No signs of head trauma. EYES: Pupils are equal. Extraocular motions intact. EARS: Hearing grossly intact. MOUTH: Oropharynx is normal. NECK: No adenopathy, no JVD. CHEST: Chest with notable congestion bilaterally. wheezes audible during expiration. CARDIAC: Regular rate and rhythm. S1 and S2, without murmurs, gallops, or rubs. VASCULAR: No Edema. Peripheral pulses normal and equal in all extremities. ABDOMEN: Soft, non tender and non distended. No rebound or guarding, and no masses palpated. Bowel Sounds normal. MUSCULOSKELETAL: Good range of motion of all major joints. Extremities without clubbing, cyanosis or edema. NEUROLOGIC EXAM: Alert and oriented x 4. no focal sensory or strength deficits. PSYCHIATRIC: Mood normal. SKIN: detail exam as documented in skin assessment - Constitutional Vitals: Temp Pulse Resp BP Pulse Ox 98.0 F 86 18 121/70 95 11/02/21 06:00 11/02/21 06:00 11/02/21 06:00 11/02/21 06:00 11/02/21 06:00 General appearance: Present: no acute distress, well-nourished Results - Labs CBC & Chem 7: 11/02/21 04:43 11/02/21 04:43 Labs: Laboratory Last Values WBC 5.3 K/mm3 (4.5-11.0) 11/02/21 04:43 RBC 4.28 M/mm3 (3.65-5.03) 11/02/21 04:43 Hgb 13.7 gm/dl (11.8-15.2) 11/02/21 04:43 Hct 42.5 % (35.5-45.6) 11/02/21 04:43 MCV 99 fl (84-94) H 11/02/21 04:43 MCH 32 pg (28-32) 11/02/21 04:43 MCHC 32 % (32-34) 11/02/21 04:43 RDW 13.5 % (13.2-15.2) 11/02/21 04:43 Plt Count 277 K/mm3 (140-440) 11/02/21 04:43 Lymph % (Auto) 11.8 % (13.4-35.0) L 11/02/21 04:43 [place] % (Auto) 0.8 % (0.0-7.3) 11/02/21 04:43 Eos % (Auto) 0.1 % (0.0-4.3) 11/02/21 04:43 Baso % (Auto) 0.2 % (0.0-1.8) 11/02/21 04:43 Lymph # (Auto) 0.6 K/mm3 (1.2-5.4) L 11/02/21 04:43 [place] # (Auto) 0.0 K/mm3 (0.0-0.8) 11/02/21 04:43 Eos # (Auto) 0.0 K/mm3 (0.0-0.4) 11/02/21 04:43 Baso # (Auto) 0.0 K/mm3 (0.0-0.1) 11/02/21 04:43 Add Manual Diff Complete 11/01/21 15:38 Total Counted 100 11/01/21 15:38 Seg Neutrophils % 87.1 % (40.0-70.0) H 11/02/21 04:43 Seg Neuts % (Manual) 43.0 % (40.0-70.0) 11/01/21 15:38 Band Neutrophils % 0 % 11/01/21 15:38 Lymphocytes % (Manual) 30.0 % (13.4-35.0) 11/01/21 15:38 Reactive Lymphs % (Man) 0 % 11/01/21 15:38 Monocytes % (Manual) 15.0 % (0.0-7.3) H 11/01/21 15:38 Eosinophils % (Manual) 11.0 % (0.0-4.3) H 11/01/21 15:38 Basophils % (Manual) 1.0 % (0.0-1.8) 11/01/21 15:38 Metamyelocytes % 0 % 11/01/21 15:38 Myelocytes % 0 % 11/01/21 15:38 Promyelocytes % 0 % 11/01/21 15:38 Blast Cells % 0 % 11/01/21 15:38 Nucleated RBC % Not Reportable 11/01/21 15:38 Seg Neutrophils # 4.6 K/mm3 (1.8-7.7) 11/02/21 04:43 Seg Neutrophils # Man 2.3 K/mm3 (1.8-7.7) 11/01/21 15:38 Band Neutrophils # 0.0 K/mm3 11/01/21 15:38 Lymphocytes # (Manual) 1.6 K/mm3 (1.2-5.4) 11/01/21 15:38 Abs React Lymphs (Man) 0.0 K/mm3 11/01/21 15:38 Monocytes # (Manual) 0.8 K/mm3 (0.0-0.8) 11/01/21 15:38 Eosinophils # (Manual) 0.6 K/mm3 (0.0-0.4) H 11/01/21 15:38 Basophils # (Manual) 0.1 K/mm3 (0.0-0.1) 11/01/21 15:38 Metamyelocytes # 0.0 K/mm3 11/01/21 15:38 Myelocytes # 0.0 K/mm3 11/01/21 15:38 Promyelocytes # 0.0 K/mm3 11/01/21 15:38 Blast Cells # 0.0 K/mm3 11/01/21 15:38 WBC Morphology Not Reportable 11/01/21 15:38 Hypersegmented Neuts Not Reportable 11/01/21 15:38 Hyposegmented Neuts Not Reportable 11/01/21 15:38 Hypogranular Neuts Not Reportable 11/01/21 15:38 Smudge Cells Not Reportable 11/01/21 15:38 Toxic Granulation Not Reportable 11/01/21 15:38 Toxic Vacuolation Not Reportable 11/01/21 15:38 Dohle Bodies Not Reportable 11/01/21 15:38 Pelger-Huet Anomaly Not Reportable 11/01/21 15:38 Baljit Rods Not Reportable 11/01/21 15:38 Platelet Estimate Consistent w auto 11/01/21 15:38 Clumped Platelets Not Reportable 11/01/21 15:38 Plt Clumps, EDTA Not Reportable 11/01/21 15:38 Large Platelets Not Reportable 11/01/21 15:38 Giant Platelets Not Reportable 11/01/21 15:38 Platelet Satelliting Not Reportable 11/01/21 15:38 Plt Morphology Comment Not Reportable 11/01/21 15:38 RBC Morphology Normal 11/01/21 15:38 Dimorphic RBCs Not Reportable 11/01/21 15:38 Polychromasia Not Reportable 11/01/21 15:38 Hypochromasia Not Reportable 11/01/21 15:38 Poikilocytosis Not Reportable 11/01/21 15:38 Anisocytosis Not Reportable 11/01/21 15:38 Microcytosis Not Reportable 11/01/21 15:38 Macrocytosis Not Reportable 11/01/21 15:38 Spherocytes Not Reportable 11/01/21 15:38 Pappenheimer Bodies Not Reportable 11/01/21 15:38 Sickle Cells Not Reportable 11/01/21 15:38 Target Cells Not Reportable 11/01/21 15:38 Tear Drop Cells Not Reportable 11/01/21 15:38 Ovalocytes Not Reportable 11/01/21 15:38 Helmet Cells Not Reportable 11/01/21 15:38 Marie-[place]ub[place] Bodies Not Reportable 11/01/21 15:38 [place] Rings Not Reportable 11/01/21 15:38 [place] Cells Not Reportable 11/01/21 15:38 Bite Cells Not Reportable 11/01/21 15:38 Crenated Cell Not Reportable 11/01/21 15:38 Elliptocytes Not Reportable 11/01/21 15:38 Acanthocytes (Spur) Not Reportable 11/01/21 15:38 Rouleaux Not Reportable 11/01/21 15:38 Hemoglobin C Crystals Not Reportable 11/01/21 15:38 Schistocytes Not Reportable 11/01/21 15:38 Malaria parasites Not Reportable 11/01/21 15:38 Chu Bodies Not Reportable 11/01/21 15:38 Hem Pathologist Commnt No 11/01/21 15:38 Sodium 137 mmol/L (137-145) 11/02/21 04:43 Potassium 4.3 mmol/L (3.6-5.0) 11/02/21 04:43 Chloride 101.5 mmol/L (98-107) 11/02/21 04:43 Carbon Dioxide 19 mmol/L (22-30) L 11/02/21 04:43 Anion Gap 21 mmol/L 11/02/21 04:43 BUN 11 mg/dL (9-20) 11/02/21 04:43 Creatinine 0.9 mg/dL (0.8-1.3) 11/02/21 04:43 Estimated GFR > 60 ml/min 11/02/21 04:43 BUN/Creatinine Ratio 12 % 11/02/21 04:43 Glucose 151 mg/dL (75-100) H 11/02/21 04:43 Calcium 9.6 mg/dL (8.4-10.2) 11/02/21 04:43 Total Bilirubin 0.60 mg/dL (0.1-1.2) 11/01/21 15:38 AST 22 units/L (5-40) 11/01/21 15:38 ALT 20 units/L (7-56) 11/01/21 15:38 Alkaline Phosphatase 66 units/L (35-129) 11/01/21 15:38 Total Protein 7.2 g/dL (6.3-8.2) 11/01/21 15:38 Albumin 4.4 g/dL (3.9-5) 11/01/21 15:38 Albumin/Globulin Ratio 1.6 % 11/01/21 15:38 Nelson/IV: Voiding Method Toilet Active Medications - Current Medications Current Medications: Generic Name Dose Route Start Last Admin Trade Name Freq PRN Reason Stop Dose Admin Acetaminophen 650 mg 11/01/21 21:40 Acetaminophen 325 Mg Tab PO Q4H PRN Pain MILD(1-3)/Fever >100.5/AQUINO Albuterol 2.5 mg 11/01/21 21:40 11/02/21 04:00 Albuterol 2.5 Mg/3 Ml Nebu IH 2.5 mg Q3HRT PRN Administration Shortness Of Breath Albuterol/Ipratropium 1 ampul 11/02/21 02:00 11/02/21 02:00 Ipratropium/Albuterol Sulfate 3 Ml Ampul.Neb IH Not Given Q6HRT KAVIN Famotidine 20 mg 11/01/21 22:00 11/02/21 00:00 Famotidine 20 Mg Tab PO 20 mg BID KAVIN Administration Heparin Sodium (Porcine) 5,000 unit 11/01/21 22:00 11/02/21 00:00 Heparin 5,000 Unit/1 Ml Vial SUB-Q 5,000 unit Q12HR KAVIN Administration Hydromorphone HCl 0.5 mg 11/01/21 21:40 Hydromorphone 1 Mg/1 Ml Inj IV Q3H PRN Pain , Severe (7-10) Levofloxacin/Dextrose 750 mg in 150 mls @ 100 mls/hr 11/01/21 22:00 11/02/21 00:00 Levaquin 750mg/150ml IV 100 mls/hr Q24H KAVIN Administration Protocol Methylprednisolone Sodium Succinate 40 mg 11/01/21 22:00 11/02/21 06:46 Methylprednisolone Sod Succinate 40 Mg/1 Ml Inj IV 40 mg Q8HR KAVIN Administration Montelukast Sodium 10 mg 11/01/21 22:00 11/01/21 22:55 Montelukast 10 Mg Tab PO Not Given QHS KAVIN Morphine Sulfate 2 mg 11/01/21 21:40 Morphine 2 Mg/1 Ml Inj IV Q4H PRN Pain, Moderate (4-6) Ondansetron HCl 4 mg 11/01/21 21:40 Ondansetron 4 Mg/2 Ml Inj IV Q8H PRN Nausea And Vomiting Sodium Chloride 10 ml 11/01/21 22:00 11/02/21 00:24 Sodium Chloride 0.9% 10 Ml Flush Syringe IV 10 ml BID KAVIN Administration Sodium Chloride 10 ml 11/01/21 21:40 Sodium Chloride 0.9% 10 Ml Flush Syringe IV PRN PRN LINE FLUSH
[2021-11-02] MEDS: FAMOTIDINE 20 MG TAB PO SCH ×3 (09:12→21:32)
[2021-11-02] MEDS: BUDESONIDE 0.5 MG/2 ML NEBU IH SCH ×2 (10:12→20:06)
[2021-11-02] MEDS: HEPARIN 5,000 UNIT/1 ML VIAL SUB-Q SCH ×3 (10:59→21:31)
[2021-11-02] MEDS: LORATADINE/PSEUDOEPHEDRINE 10-240 MG TAB 24HR PO SCH (15:05)
[2021-11-02] MEDS: guaiFENesin/CODEINE 100-10MG ORAL LIQD 5 ML PO PRN (20:05)
[2021-11-02] MEDS: MONTELUKAST 10 MG TAB PO SCH (21:32)
[2021-11-03] MEDS: IPRATROPIUM/ALBUTEROL SULFATE 3 ML AMPUL.NEB IH SCH ×3 (01:53→14:32)
[2021-11-03] MEDS: methylPREDNISolone Sod Succinate 40 MG/1 ML INJ IV SCH (05:22)
[2021-11-03] MEDS: BUDESONIDE 0.5 MG/2 ML NEBU IH SCH (08:46)
[2021-11-03] MEDS: HEPARIN 5,000 UNIT/1 ML VIAL SUB-Q SCH (11:06)
[2021-11-03] MEDS: guaiFENesin/CODEINE 100-10MG ORAL LIQD 5 ML PO PRN (11:07)
[2021-11-03] MEDS: FAMOTIDINE 20 MG TAB PO SCH (11:10)
[2021-11-03] MEDS: LORATADINE/PSEUDOEPHEDRINE 10-240 MG TAB 24HR PO SCH (11:10)
[2021-11-03 12:38] VITALS: BP 131/64
--- NOTE | 2021-11-03 14:01 | Discharge Summary ---
Providers - Providers Date of Admission: 11/01/21 21:40 Attending physician: FLOR LAZARO MD Primary care physician: JACINTA COOK Hospitalization Reason for admission: wheezing, shortness of breath Condition: Stable Hospital course: History of present illness: 66-year male with history of hyperlipidemia and pneumonia was brought to the mergency room because of wheezing and shortness of breath for several days. Patient was seen here October 28 with similar symptoms and was diagnosed with acute bronchitis. Chest x-ray negative at that time. He was prescribed albuterol, azithromycin, and guaifenesin. Patient has been taking medications without improvement. Continues to have persistent wheezing and shortness of breath was worsening today. Cough is productive with occasional green sputum. Patient complains of chest tightness related to wheezing rated 3/10 in intensity worse with exertion. Patient denies smoking history, history of COPD, or asthma In the emergency room patient is found to have continuous respiratory distress wheezing so going to admit the patient we will put the patient on neb treatment and steroid and IV antibiotic Hospital course 11/02: Complains of cough this AM. Added claritin - D. Will continue nebs/steroids/abx for treatment. Appears to have airway irritation from 11/03: Doing well on encounter. Walking o2 test completed. patient is 98% on room air. Discharge home today. Will send home with rx for albuterol, Pulmicort, prednisone taper, Claritin, Robitussin. Last day levaquin today. no need for rx. 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 previously healthy, plays tennis daily. no smoking hx. -on supplemental 2L O2 saturating 97%. - CXR no acute findings. -encourage pulmonary toileting, incentive spirometer -med management with albuterol/ipratropium nebs, budesonide nebs, solumedrol, levaquin, monteluekast. #Reactive airway disease with wheezing #Hyperlipidemia - does not take medications for this. #Advance care planning Disease education conducted, care plan discussed, diagnoses discussed, prognosis discussed, patient is full code, patient acknowledges understanding and agree with care plan, +30 minutes. Disposition: HOME / SELF CARE / HOMELESS Final Discharge Diagnosis (Prints w/discharge instructions): acute bronchitis Time spent for discharge: 35 Core Measure Documentation - Palliative Care Palliative Care/ Comfort Measures: Not Applicable - Core Measures Any of the following diagnoses?: none Exam - Physical Exam Narrative exam: Physical Exam: VITAL SIGNS: Reviewed. GENERAL: The patient appears normally developed, Vital signs as documented. HEAD: No signs of head trauma. EYES: Pupils are equal. Extraocular motions intact. EARS: Hearing grossly intact. MOUTH: Oropharynx is normal. NECK: No adenopathy, no JVD. CHEST: Chest with notable congestion bilaterally. wheezes audible during expiration. (improved on encounter) CARDIAC: Regular rate and rhythm. S1 and S2, without murmurs, gallops, or rubs. VASCULAR: No Edema. Peripheral pulses normal and equal in all extremities. ABDOMEN: Soft, non tender and non distended. No rebound or guarding, and no masses palpated. Bowel Sounds normal. MUSCULOSKELETAL: Good range of motion of all major joints. Extremities without clubbing, cyanosis or edema. NEUROLOGIC EXAM: Alert and oriented x 4. no focal sensory or strength deficits. PSYCHIATRIC: Mood normal. SKIN: detail exam as documented in skin assessment - Constitutional Vitals: Temp Pulse Resp BP Pulse Ox 98.0 F 79 16 131/64 97 11/03/21 12:00 11/03/21 12:00 11/03/21 12:00 11/03/21 12:00 11/03/21 12:00 Plan Follow up with: JACINTA COOK MD [Primary Care Provider] - 3-5 Days
[2021-11-04] MEDS ORDERED: levoFLOXacin 750 MG TAB PO SCH (22:00)
== END 2021-11-03 17:12 | disposition home or self-care (01) | DRG 203 ==
LOC: ED 14:49 → 3A 21:40
PROVIDERS: ADMIT Hospitalist; ATTEND Internal Medicine
DX: J20.9 Acute bronchitis, unspecified (principal); E78.5 Hyperlipidemia, unspecified; J45.909 Unspecified asthma, uncomplicated; Z91.041 Radiographic dye allergy status; Z88.0 Allergy status to penicillin; Z91.013 Allergy to seafood
CPT/HCPCS: 36415; 71046; 80048; 80053; 85007; 85025; 94640; 94644; 94760; G0378; J1644; J1956; J2405; J2920; J2930; J3475

== ENCOUNTER 2021-12-04 02:35 | Emergency (ER) | payer MEDICARE ==
[2021-12-04] MEDS ORDERED: IPRATROPIUM 0.02% NEBU 2.5 ML IH ONE (03:10)
[2021-12-04] MEDS ORDERED: methylPREDNISolone Sod Succinate 125 MG/2 ML INJ IV ONE (03:10)
[2021-12-04] MEDS ORDERED: ALBUTEROL 2.5 MG/3 ML NEBU IH ONE (03:10)
[2021-12-04] MEDS ORDERED: SODIUM CHLORIDE 0.9% 1000 ML 1,000 ML IV ONE (03:10)
--- NOTE | 2021-12-04 03:27 | XRay Report ---
CHEST 1 VIEW INDICATION / CLINICAL INFORMATION: Dyspnea STUDY TIME: 311 COMPARISON: 11/01/2021 FINDINGS: SUPPORT DEVICES: None HEART / MEDIASTINUM: No significant abnormality. LUNGS / PLEURA: No significant acute pulmonary or pleural abnormality. No pneumothorax. ADDITIONAL FINDINGS: No significant additional findings. Signer Name: Amos Lomeli MD Signed: 12/04/2021 3:23 AM Workstation Name: [id number]
[2021-12-04 03:39] LABS: Hematocrit 42.1 % (35.5-45.6); Hemoglobin 13.6 gm/dl (11.8-15.2); Mean Corpuscular HGB Conc 32 % (32-34); Mean Corpuscular Volume 99 fl (84-94); Platelet Count 254 K/mm3 (140-440); Red Blood Count 4.27 M/mm3 (3.65-5.03); Red Cell Distribution Width 13.5 % (13.2-15.2)
[2021-12-04 04:00] LABS: ABG Base Excess -0.8 mmol/L (-2.0-3.0); ABG HCO3 26.8 mmol/L (20.0-26.0); ABG Methemoglobin 0.5 % (0.0-1.5); ABG Oxygen Saturation 96.3 % (95.0-99.0); ABG PCO2 56.9 mm Hg; ABG PH 7.291 pH Units (7.350-7.450); ABG PO2 89.2 mm Hg (80.0-90.0)
[2021-12-04 04:01] LABS: Creatine Kinase MB 9.5 ng/mL (0.0-4.0)
[2021-12-04 04:02] LABS: Alanine Aminotransferase 26 units/L (7-56); Albumin 4.2 g/dL (3.9-5); BUN/Creatinine Ratio 15; Blood Urea Nitrogen 12 mg/dL (9-20); Calcium 9.3 mg/dL (8.4-10.2); Hemolysis Index 31
[2021-12-04] MEDS ORDERED: cefTRIAXone/NS 1 GM/50 ML 1 GM/50 ML BAG IV ONE (05:51)
--- NOTE | 2021-12-04 05:53 | Emergency Department Report ---
ED Shortness of Breath HPI - General Chief Complaint: Dyspnea/Respdistress Stated Complaint: ARETHA/SOB Time Seen by Provider: 12/04/21 03:10 Source: patient Mode of arrival: Ambulatory Limitations: No Limitations - History of Present Illness Initial Comments: SOB and ARETHA , started few days ago was seen by his doctor and diagnosd with neumonia , but not getting better no fever no rash MD Complaint: shortness of breath -: Gradual, days(s) Improves With: nothing Context: recent URI Associated Symptoms: denies other symptoms Treatments Prior to Arrival: bronchodilator - Related Data Home Oxygen Therapy: No Previous Rx's Medication Instructions Recorded Last Taken Type Albuterol Mdi (or & Nicu Only) 2 puff IH QID PRN #8.5 gram 10/28/21 11/01/21 22:00 Rx [ProAir HFA Inhaler] Azithromycin [Zithromax Z-LONNIE] 0 mg PO DAILY #6 tab 10/28/21 11/01/21 10:00 Rx guaiFENesin [Guaifenesin] 200 mg PO QID PRN #30 10/28/21 11/01/21 20:00 Rx Albuterol Mdi (or & Nicu Only) 1 puff IH Q4HR PRN 30 Days #8.5 11/03/21 Unknown Rx [ProAir HFA Inhaler] gram Budesonide [Pulmicort Flexhaler] 180 mcg IH BID 30 Days #1 pump 11/03/21 Unknown Rx Dextromethorphan Polistirex 30 mg PO BID PRN 30 Days #1 bottle 11/03/21 Unknown Rx [Robitussin ER] Loratadine [Claritin] 10 mg PO DAILY 30 Days #30 tab 11/03/21 Unknown Rx Prednisone [predniSONE 10 mg 10 mg PO .TAPER #1 11/03/21 Unknown Rx (6-Day Pack, 21 Tabs)] Albuterol Mdi (or & Nicu Only) 2 puff IH QID PRN #8.5 gram 12/04/21 Unknown Rx [ProAir HFA Inhaler] Brompheniramine/Pseudoephed/Dm 5 ml PO Q6HR PRN #120 syrup 12/04/21 Unknown Rx [Bromfed Dm Cough Syrup] levoFLOXacin [Levaquin TAB] 500 mg PO QDAY #10 tablet 12/04/21 Unknown Rx methylPREDNISolone [Medrol 4MG 4 mg PO DAILY #1 12/04/21 Unknown Rx DOSEPAK (21 tabs)] Allergies Allergy/AdvReac Type Severity Reaction Status Date / Time Iodinated Contrast Media Allergy Unknown Verified 12/04/21 02:51 Penicillins Allergy Unknown Verified 12/04/21 02:51 seafood Allergy Unknown Uncoded 12/04/21 02:51 ED Review of Systems ROS: Stated complaint: ARETHA/SOB Other details as noted in HPI Constitutional: denies: chills, fever Eyes: denies: eye pain, eye discharge, vision change ENT: denies: ear pain, throat pain Respiratory: denies: cough, shortness of breath, wheezing Cardiovascular: denies: chest pain, palpitations Endocrine: no symptoms reported Gastrointestinal: denies: abdominal pain, nausea, diarrhea Genitourinary: denies: urgency, dysuria Musculoskeletal: denies: back pain, joint swelling, arthralgia Skin: denies: rash, lesions Neurological: denies: headache, weakness, paresthesias Psychiatric: denies: anxiety, depression Hematological/Lymphatic: denies: easy bleeding, easy bruising ED Past Medical Hx - Past Medical History Previous Medical History?: Yes Hx Hypertension: No Hx CVA: No Additional medical history: HYPERLIPIDEMIA, SOB, PNEMONIA - Surgical History Past Surgical History?: No Additional Surgical History: neck - Social History Smoking Status: Never Smoker Substance Use Type: None - Medications Home Medications: Home Medications Medication Instructions Recorded Confirmed Last Taken Type Albuterol Mdi (or & Nicu Only) 2 puff IH QID PRN #8.5 gram 10/28/21 11/02/21 11/01/21 22:00 Rx [ProAir HFA Inhaler] Azithromycin [Zithromax Z-LONNIE] 0 mg PO DAILY #6 tab 10/28/21 11/02/21 11/01/21 10:00 Rx guaiFENesin [Guaifenesin] 200 mg PO QID PRN #30 10/28/21 11/02/21 11/01/21 20:00 Rx Albuterol Mdi (or & Nicu Only) 1 puff IH Q4HR PRN 30 Days #8.5 11/03/21 Unknown Rx [ProAir HFA Inhaler] gram Budesonide [Pulmicort Flexhaler] 180 mcg IH BID 30 Days #1 pump 11/03/21 Unknown Rx Dextromethorphan Polistirex 30 mg PO BID PRN 30 Days #1 bottle 11/03/21 Unknown Rx [Robitussin ER] Loratadine [Claritin] 10 mg PO DAILY 30 Days #30 tab 11/03/21 Unknown Rx Prednisone [predniSONE 10 mg 10 mg PO .TAPER #1 11/03/21 Unknown Rx (6-Day Pack, 21 Tabs)] Albuterol Mdi (or & Nicu Only) 2 puff IH QID PRN #8.5 gram 12/04/21 Unknown Rx [ProAir HFA Inhaler] Brompheniramine/Pseudoephed/Dm 5 ml PO Q6HR PRN #120 syrup 12/04/21 Unknown Rx [Bromfed Dm Cough Syrup] levoFLOXacin [Levaquin TAB] 500 mg PO QDAY #10 tablet 12/04/21 Unknown Rx methylPREDNISolone [Medrol 4MG 4 mg PO DAILY #1 12/04/21 Unknown Rx DOSEPAK (21 tabs)] ED Physical Exam - General Limitations: No Limitations General appearance: alert - Head Head exam: Present: atraumatic, normocephalic - Eye Eye exam: Present: normal appearance - ENT ENT exam: Present: mucous membranes moist - Neck Neck exam: Present: normal inspection - Respiratory Respiratory exam: Present: normal lung sounds bilaterally, respiratory distress, wheezes, rhonchi, decreased breath sounds - Cardiovascular Cardiovascular Exam: Present: regular rate, normal rhythm. Absent: systolic murmur, diastolic murmur, rubs, gallop - GI/Abdominal GI/Abdominal exam: Present: soft, normal bowel sounds - Rectal Rectal exam: Present: deferred - Extremities Exam Extremities exam: Present: normal inspection - Back Exam Back exam: Present: normal inspection - Neurological Exam Neurological exam: Present: alert, oriented X3 - Psychiatric Psychiatric exam: Present: normal affect, normal mood - Skin Skin exam: Present: warm, dry, intact, normal color. Absent: rash ED Course Vital Signs 12/04/21 12/04/21 12/04/21 02:49 02:55 02:56 Temperature 97.8 F Pulse Rate 56 L Respiratory 26 H 16 24 Rate Blood Pressure Blood Pressure 155/82 [Left] O2 Sat by Pulse 93 100 Oximetry 12/04/21 12/04/21 12/04/21 03:01 03:15 03:31 Temperature Pulse Rate 84 90 125 H Respiratory 18 22 19 Rate Blood Pressure 122/77 126/88 131/79 Blood Pressure [Left] O2 Sat by Pulse 99 100 100 Oximetry 12/04/21 12/04/21 12/04/21 03:45 04:01 04:15 Temperature Pulse Rate 103 H 92 H 68 Respiratory 20 21 22 Rate Blood Pressure 144/89 149/84 143/83 Blood Pressure [Left] O2 Sat by Pulse 97 100 100 Oximetry 12/04/21 12/04/21 12/04/21 04:31 04:45 05:01 Temperature Pulse Rate 62 62 60 Respiratory 21 20 20 Rate Blood Pressure 133/79 138/77 137/77 Blood Pressure [Left] O2 Sat by Pulse 100 97 100 Oximetry 12/04/21 05:31 Temperature Pulse Rate 74 Respiratory 28 H Rate Blood Pressure 138/77 Blood Pressure [Left] O2 Sat by Pulse 100 Oximetry ED Medical Decision Making - Lab Data Result diagrams: 12/04/21 03:18 12/04/21 03:18 - EKG Data -: EKG Interpreted by Me EKG shows normal: sinus rhythm Rate: normal - EKG Data Interpretation: subendocardial ischemia - Radiology Data Radiology results: report reviewed, image reviewed - Medical Decision Making work up showed normal wbc clear x ray dmimer negative rt given steriods and abx , vss , imrpoved alot Critical care attestation.: If time is entered above; I have spent that time in minutes in the direct care of this critically ill patient, excluding procedure time. ED Disposition Clinical Impression: Acute bronchitis with wheezing Disposition: 01 HOME / SELF CARE / HOMELESS Is pt being admited?: No Does the pt Need Aspirin: No Condition: Stable Instructions: Acute Bronchitis (ED), Acute Bronchitis, Adult, [id number] Referrals: PRIMARY CARE, [Primary Care Provider] - 3-5 Days
--- NOTE | 2021-12-04 06:09 | Cat Scan Report ---
CT CHEST WITHOUT CONTRAST INDICATION: Shortness of breath CONTRAST: Without IV COMPARISON: Portable chest x-ray tonight All CT scans at this location are performed using CT dose reduction for ALARA by means of automated e xposure control. FINDINGS: Surgical changes in lower cervical spine. No significant axillary or chest wall abnormality . Visualized abdomen with no acute abnormality. Mild mediastinal porter prominence with scattered mult icompartment nodes measuring up to short axis diameter 12 mm. No obvious hilar masses. No obvious end obronchial lesion. No pneumothorax or pneumomediastinum. No coronary artery calcifications. No pleura l effusions. Aorta is prominent. Ascending aortic mid diameter is 4.2 cm. Mid arch diameter 3.5 cm an d mid descending diameter 3 cm. Lung guillory with no areas of consolidation. Slight focal areas of interstitial infiltrate with mild t ree-in-bud pattern seen in left upper lobe and right lower lobe of unclear chronicity. Minimal periph eral nodule in the lateral segment of the right middle lobe measuring 2 mm. IMPRESSION: Mild bilateral focal interstitial changes which could represent acute pneumonitis but chr onicity is unknown. Clinical correlation is suggested. No areas of consolidation are seen. Tiny right middle lobe nodule. INCIDENTAL PULMONARY NODULE RECOMMENDATIONS Solid Nodule size* <6 mm -- Single or Multiple - Low Risk Patient: No routine follow-up - High Risk Patient: Optional CT at 12 months Note These recommendations do not apply to lung cancer screening, patients with immunosuppression, o r patients with known primary cancer. Note Newly detected indeterminate nodule in persons 35 years of age or older. Persons under the age of 35 should not receive follow-up unless there is a known primary cancer. Low Risk Patient -- minimal or absent history of smoking and of other known risk factors. High Risk Patient -- history of smoking or of other known risk factors. *Dimensions are average of long and short axes, rounded to the nearest millimeter. Based on 2017 Fleischner Society Guidelines found in Radiology 2017 284:228-243. [email or web address]://doi.[email or web address] Signer Name: Amos Lomeli MD Signed: 12/04/2021 6:05 AM Workstation Name: [id number]
[2021-12-04 06:22] LABS: Platelet Estimate Consistent w Auto; RBC Morphology Normal; Total Cells Counted 100
[2021-12-04 07:09] VITALS: BP 105/75
== END 2021-12-04 07:09 | disposition home or self-care (01) ==
LOC: ED 02:35
DX: J20.9 Acute bronchitis, unspecified (principal); R06.2 Wheezing; Z88.0 Allergy status to penicillin; Z91.013 Allergy to seafood; Z91.041 Radiographic dye allergy status
CPT/HCPCS: 36415; 71045; 71250; 80053; 82140; 82550; 82553; 82803; 83880; 84484; 85007; 85025; 85379; 87040; 93005; 94640; 96361; 96365; 96375; 99284; J0696; J2930; J7030